=== PATIENT | male | born 1950 | race African-American/Black ===

== ENCOUNTER 2017-08-15 12:34 | Emergency (ER) | payer OTHER ==
--- NOTE | 2017-08-15 13:53 | RAD REPORT ---
EXAM DESCRIPTION: RAD - Foot Left 3 View - 08/15/2017 1:45 pm CLINICAL HISTORY: Left Foot pain FINDINGS: No fracture or dislocation is seen. No bony destructive lesion is seen. Postsurgical changes involve fourth and fifth digits Defect involving the distal aspect of the second metatarsal probably is post surgical. Prior inflamma tion/infection is another consideration
[2017-08-15] MEDS ORDERED: HYDROCODONE/APAP 5/325 MG TAB ONE (14:00)
--- NOTE | 2017-08-15 15:24 | EDPHYS ---
Physician Documentation [facility] Name: Farhan Diaz Age: 67 yrs Sex: Male : 1950 Arrival Date: 08/15/2017 Time: 12:35 Bed 27 Private MD: ED Physician Marcelo Rausch HPI: 08/15 15:18 This 67 yrs old Black Male presents to ER via Ambulatory with complaints of Feet gs Swelling. 15:18 The patient presents with pain, that is acute, swelling. The complaints affect the left gs foot, medial aspect of left toes. Onset: The symptoms/episode began/occurred 2 day(s) ago, and became worse. Associated signs and symptoms: Pertinent negatives: fever. Severity of symptoms: At their worst the symptoms were moderate, in the emergency department the symptoms are unchanged. The patient has not experienced similar symptoms in the past. Historical: - Allergies: 12:48 No Known Allergies; aj - Home Meds: 12:48 amitriptyline 25 mg Oral tab 1 tab once daily [Active]; atorvastatin 40 mg oral tab 1 aj tab once daily [Active]; bupropion HCl 150 mg Oral Tb24 1 tab once daily [Active]; carvedilol 25 mg oral tab 1 tab 2 times per day [Active]; diclofenac sodium 50 mg oral TbEC daily [Active]; gabapentin 300 mg oral cap nightly [Active]; lisinopril 40 mg Oral tab 1 tab once daily [Active]; magnesium oxide 420 mg Oral tab [Active]; metformin 500 mg Oral TG24 2 tabs 2 times per day [Active]; sildenafil oral 100 mg oral as needed [Active]; - PMHx: 12:48 Hyperlipidemia; Hypertension; TBI; Diabetes - NIDDM; aj - PSHx: 12:48 Metal Plate in head; aj - Immunization history:: Adult Immunizations up to date. - Social history:: Smoking status: Patient/guardian denies using tobacco. ROS: 15:18 All other systems are negative. gs Exam: 15:18 Head/Face: Normocephalic, atraumatic. Eyes: Pupils equal round and reactive to light, gs extra-ocular motions intact. Lids and lashes normal. Conjunctiva and sclera are non-icteric and not injected. Cornea within normal limits. Periorbital areas with no swelling, redness, or edema. Cardiovascular: Regular rate and rhythm with a normal S1 and S2. No gallops, murmurs, or rubs. Normal PMI, no JVD. No pulse deficits. Respiratory: Lungs have equal breath sounds bilaterally, clear to auscultation and percussion. No rales, rhonchi or wheezes noted. No increased work of breathing, no retractions or nasal flaring. Abdomen/GI: Soft, non-tender, with normal bowel sounds. No distension or tympany. No guarding or rebound. No evidence of tenderness throughout. Skin: Warm, dry with normal turgor. Normal color with no rashes, no lesions, and no evidence of cellulitis. Neuro: Awake and alert, GCS 15, oriented to person, place, time, and situation. Cranial nerves II-XII grossly intact. Motor strength 5/5 in all extremities. Sensory grossly intact. Cerebellar exam normal. Normal gait. 15:18 Musculoskeletal/extremity: Extremities: noted in the left first toe: erythema, pain, swelling, tenderness, ROM: no acute changes, Circulation is intact in all extremities. Sensation intact. Joints: Vital Signs: 12:48 BP 117 / 81; Pulse 90; Resp 20; Temp 98.6; Pulse Ox 98% on R/A; Weight 113.4 kg; Height aj 6 ft. 4 in. (193.04 cm); Pain 10/10; 13:08 BP 130 / 91; Pulse 84; Resp 18; Pulse Ox 99% on R/A; Pain 10/10; em 14:08 BP 133 / 88; Pulse 84; Resp 18; Pulse Ox 99% on R/A; Pain 8/10; em 15:48 BP 132 / 86; Pulse 79; Resp 14; Pulse Ox 97% on R/A; em 12:48 Body Mass Index 30.43 (113.40 kg, 193.04 cm) MDM: 13:30 Patient medically screened. 15:18 Differential diagnosis: fracture, sprain, gout. Data reviewed: vital signs, nurses gs notes. Response to treatment: the patient's symptoms have mildly improved after treatment, and as a result, I will discharge patient. 08/15 13:31 Order name: Uric Acid; Complete Time: 15:06 08/15 12:52 Order name: XRAY Foot LEFT 3 View; Complete Time: 13:58 aj Administered Medications: 14:06 Drug: [place] 5 mg-325 mg 1 tabs Route: PO; em 15:48 Follow up: Response: No adverse reaction em Disposition: 08/15/17 15:23 Discharged to Home. Impression: Gout. - Condition is Stable. - Discharge Instructions: Gout, [place]. - Prescriptions for Naprosyn 500 mg Oral Tablet - take 1 tablet by ORAL route 2 times per day take with food; 14 tablet. Pepcid 20 mg Oral Tablet - take 1 tablet by ORAL route every 12 hours for 5 days; 10 tablet. Prednisone 20 mg Oral Tablet - take 1 tablet by ORAL route once daily for 5 days; 5 tablet. - Medication Reconciliation Form, Thank You Letter, Antibiotic Education, Prescription Opioid Use form. - Follow up: Private Physician; When: 2 - 3 days; Reason: Re-evaluation by your physician. Signatures: Dispatcher [employer] Lupis Bryson RN RN aj Munoz, Edgar, TEAM ASSISTANT TEAM ASSISTANT Marcelo Schultz MD MD
--- NOTE | 2017-08-15 15:24 | ER ---
Nurse's Notes [facility] Name: Frahan Diaz Age: 67 yrs Sex: Male : 1950 Arrival Date: 08/15/2017 Time: 12:35 Bed 27 Private MD: Diagnosis: Gout Presentation: 08/15 12:43 Presenting complaint: Patient states: Left great toe pain and swelling for 3 days. [facility]. Was told to come to ER for concern of infection or gout. Transition of care: patient was not received from another setting of care. Onset of symptoms was August 12, 2017. Initial Sepsis Screen: Does the patient meet any 2 criteria? No. Patient's initial sepsis screen is negative. Does the patient have a suspected source of infection? No. Patient's initial sepsis screen is negative. Care prior to arrival: None. 12:43 Method Of Arrival: Ambulatory aj 12:43 Acuity: TRACIE 3 aj Triage Assessment: 12:48 General: Appears in no apparent distress. comfortable, Behavior is calm, cooperative, aj appropriate for age. Pain: Complains of pain in left first toe Pain currently is 10 out of 10 on a pain scale. Neuro: Level of Consciousness is awake, alert, obeys commands, Oriented to person, place, time, situation, Appropriate for age. Respiratory: Airway is patent Respiratory effort is even, unlabored, Respiratory pattern is regular, symmetrical. Derm: Skin is intact, is healthy with good turgor, Skin is pink, warm \T\ dry. normal. Historical: - Allergies: 12:48 No Known Allergies; aj - Home Meds: 12:48 amitriptyline 25 mg Oral tab 1 tab once daily [Active]; atorvastatin 40 mg oral tab 1 aj tab once daily [Active]; bupropion HCl 150 mg Oral Tb24 1 tab once daily [Active]; carvedilol 25 mg oral tab 1 tab 2 times per day [Active]; diclofenac sodium 50 mg oral TbEC daily [Active]; gabapentin 300 mg oral cap nightly [Active]; lisinopril 40 mg Oral tab 1 tab once daily [Active]; magnesium oxide 420 mg Oral tab [Active]; metformin 500 mg Oral TG24 2 tabs 2 times per day [Active]; sildenafil oral 100 mg oral as needed [Active]; - PMHx: 12:48 Hyperlipidemia; Hypertension; TBI; Diabetes - NIDDM; aj - PSHx: 12:48 Metal Plate in head; aj - Immunization history:: Adult Immunizations up to date. - Social history:: Smoking status: Patient/guardian denies using tobacco. Screenin:38 Abuse screen: Denies threats or abuse. Nutritional screening: No deficits noted. em Tuberculosis screening: No symptoms or risk factors identified. Fall Risk None identified. Assessment: 13:15 General: Appears in no apparent distress. uncomfortable, Behavior is calm, cooperative. em Pain: Complains of pain in left foot Pain currently is 10 out of 10 on a pain scale. Pain began 2-3 days ago. Neuro: Level of Consciousness is awake, alert, obeys commands, Oriented to person, place, time, situation. Cardiovascular: Heart tones S1 S2 present Capillary refill < 3 seconds Patient's skin is warm and dry. Respiratory: Airway is patent Respiratory effort is even, unlabored, Respiratory pattern is regular, symmetrical. GI: Abdomen is round. : No signs and/or symptoms were reported regarding the genitourinary system. EENT: No signs and/or symptoms were reported regarding the EENT system. Derm: Skin is intact, Skin is pink, warm \T\ dry. Musculoskeletal: Range of motion: intact in all extremities. 13:30 General: The previous assessment is accurate. Call light remains within reach. at ss bedside. . 14:05 Reassessment: Patient appears in no apparent distress at this time. Patient and/or em family updated on plan of care and expected duration. Pain level reassessed. Patient is alert, oriented x 3, equal unlabored respirations, skin warm/dry/pink. awaiting blood diagnostics, pt c/o pain, Dr. Rausch notified, new medication orders received. 15:09 Reassessment: Patient appears in no apparent distress at this time. Patient and/or em family updated on plan of care and expected duration. Pain level reassessed. Patient is alert, oriented x 3, equal unlabored respirations, skin warm/dry/pink. 15:48 Reassessment: Patient appears in no apparent distress at this time. Patient and/or em family updated on plan of care and expected duration. Pain level reassessed. Patient is alert, oriented x 3, equal unlabored respirations, skin warm/dry/pink. Patient states feeling better. Vital Signs: 12:48 BP 117 / 81; Pulse 90; Resp 20; Temp 98.6; Pulse Ox 98% on R/A; Weight 113.4 kg; Height aj 6 ft. 4 in. (193.04 cm); Pain 10/10; 13:08 BP 130 / 91; Pulse 84; Resp 18; Pulse Ox 99% on R/A; Pain 10/10; em 14:08 BP 133 / 88; Pulse 84; Resp 18; Pulse Ox 99% on R/A; Pain 8/10; em 15:48 BP 132 / 86; Pulse 79; Resp 14; Pulse Ox 97% on R/A; em 12:48 Body Mass Index 30.43 (113.40 kg, 193.04 cm) aj ED Course: 12:35 Patient arrived in ED. as 12:44 Triage completed. aj 12:48 Arm band placed on left wrist. Patient placed in waiting room, Patient notified of wait aj time. 13:11 Gatito Hsu LVN is Primary Nurse. em 13:13 Marcelo Rausch MD is Attending Physician. gs 13:38 Patient has correct armband on for positive identification. Bed in low position. Call em light in reach. Side rails up X 1. Adult w/ patient. 13:43 XRAY Foot LEFT 3 View In Process Unspecified. EDMS 14:00 No provider procedures requiring assistance completed. Initial lab(s) drawn, by me, em sent to lab. Inserted saline lock: 22 gauge in left antecubital area, using aseptic technique. Blood collected. 16:14 IV discontinued, intact, bleeding controlled, No redness/swelling at site. Pressure em dressing applied. Administered Medications: 14:06 Drug: [place] 5 mg-325 mg 1 tabs Route: PO; em 15:48 Follow up: Response: No adverse reaction em Outcome: 15:23 Discharge ordered by . gs 16:14 Discharged to home via wheelchair. em 16:14 Condition: good 16:14 Discharge instructions given to patient, Instructed on discharge instructions, follow up and referral plans. medication usage, Demonstrated understanding of instructions, follow-up care, medications, Prescriptions given X 3. 16:14 Patient left the ED. em Signatures: Dispatcher [employer] Lupis Bryson RN RN aj Munoz, Edgar, LVN LVN em Liset Taylor Shelby, ANDRE RN ss Marcelo Rausch MD MD gs Corrections: (The following items were deleted from the chart) 15:09 13:08 BP 130 / 91; Pulse 18bpm; Resp 18bpm; Pulse Ox 99% RA; Pain 01/29; em em
[2017-08-15 16:25] VITALS: TEMP 98.6
[2017-08-15 16:28] VITALS: BP 132/86; O2SAT 97
== END 2017-08-15 16:14 | disposition home or self-care (01) ==
LOC: ER 12:34
DX: M10.9 Gout, unspecified (principal); I10 Essential (primary) hypertension; E78.5 Hyperlipidemia, unspecified; E11.9 Type 2 diabetes mellitus without complications
CPT/HCPCS: 36415; 84550; 99284

== ENCOUNTER 2020-01-23 10:22 | Emergency (ER) | payer OTHER ==
[2020-01-23] MEDS ORDERED: HYDROCODONE/APAP 10/325 TAB ONE (12:43)
--- NOTE | 2020-01-23 13:01 | RAD REPORT ---
EXAM DESCRIPTION: CTSpine Lumbar Wo Con01/23/2020 12:44 pm CLINICAL HISTORY: Back injury with back pain and radiculopathy status post fall COMPARISON: None TECHNIQUE: Computed axial tomography lumbar spine was obtained with coronal and sagittal reconstruct ion. All CT scans are performed using dose optimization technique as appropriate and may include automated exposure control or mA/KV adjustment according to patient size. FINDINGS: No fracture seen [id number] chronic posterior subluxation L5 on S1 with disc space narrowing, vacuum phenomena, subchondral sclerosis, disc bulge and epidural lipomatosis. All of this results in central spinal randall nosis Spondylosis involves L2-3, L3-4 and L4-5 resulting mild central spinal stenosis IMPRESSION: Negative for a lumbar fracture. Marked central spinal stenosis L5-S1 If patient continues have symptoms to suggest spinal canal pathology MRI would be recommended
--- NOTE | 2020-01-23 13:05 | RAD REPORT ---
EXAM DESCRIPTION: RAD - Pelvis - 01/23/2020 12:30 pm CLINICAL HISTORY: Pelvic pain status post injury FINDINGS: No fracture or dislocation is seen.
--- NOTE | 2020-01-23 13:07 | RAD REPORT ---
EXAM DESCRIPTION: RAD - Hip Left 2 View - 01/23/2020 12:30 pm CLINICAL HISTORY: Left hip pain status post injury FINDINGS: No fracture or dislocation is seen.
--- NOTE | 2020-01-23 13:10 | RAD REPORT ---
EXAM DESCRIPTION: RAD - Knee Left 3 View - 01/23/2020 12:32 pm CLINICAL HISTORY: Left knee pain status post injury FINDINGS: Cortical irregularity involves the lateral aspect of the lateral tibial plateau. This is e quivocal for a nondisplaced fracture. If clinically indicated further evaluation with CT could be obt ained No dislocation Small to moderate joint effusion is suspected
[2020-01-23] MEDS ORDERED: MORPHINE 4 MG/ML SYR ONE ×2 (13:48→17:22)
[2020-01-23] MEDS ORDERED: ONDANSETRON 4 MG/2 ML VIAL ONE (13:49)
--- NOTE | 2020-01-23 14:07 | RAD REPORT ---
EXAM DESCRIPTION: CT - Knee Left Wo [place] - 01/23/2020 1:46 pm CLINICAL HISTORY: Left knee pain and swelling status post fall COMPARISON: X-ray TECHNIQUE: Computed axial tomography left obtained All CT scans are performed using dose optimization technique as appropriate and may include automated exposure control or mA/KV adjustment according to patient size. FINDINGS: 3 millimeter bony density lies adjacent to the tibial spine. An additional bony/ calcific density within the intercondylar notch appears chronic. No definite acute fracture or dislocation seen. Bones appear somewhat osteoporotic Small to moderate joint effusion. IMPRESSION: 3 millimeter bony density adjacent to the tibial spine has a more of the appearance of b eing chronic than an acute avulsion fracture. Small to moderate joint effusion. In the setting of trauma if the patient continues to have symptoms to suggest an occult fracture, ligamentous or meniscal injury MRI would be recommended
--- NOTE | 2020-01-23 14:17 | ER ---
Nurse's Notes [facility] Name: Farhan Diaz Age: 69 yrs Sex: Male : 1950 Arrival Date: 01/23/2020 Time: 10:23 Bed 14 Private MD: Diagnosis: Spinal stenosis, lumbar region;Loss of bladder control, Left leg weakness, Left knee pain Presentation: 01/22 10:52 Chief complaint: Patient states: I tripped and fell 4 days ago going to the bathroom, ca1 since then I have pain on my L knee and L hip, L lower back. I landed on the floor but I caught myself a little. Reports swelling on L knee, trouble walking since the fall. Coronavirus screen: Client denies travel out of the [place] in the last 14 days. At this time, the client does not indicate any symptoms associated with coronavirus-19. Ebola Screen: Patient negative for fever greater than or equal to 101.5 degrees Fahrenheit, and additional compatible Ebola Virus Disease symptoms Patient denies exposure to infectious person. Patient denies travel to an Ebola-affected area in the 21 days before illness onset. No symptoms or risks identified at this time. Initial Sepsis Screen: Does the patient meet any 2 criteria? No. Patient's initial sepsis screen is negative. Does the patient have a suspected source of infection? No. Patient's initial sepsis screen is negative. Risk Assessment: Do you want to hurt yourself or someone else? Patient reports no desire to harm self or others. Onset of symptoms was January 23, 2020. 10:52 Method Of Arrival: Wheelchair ca1 10:52 Acuity: TRACIE 4 ca1 Historical: - Allergies: 11:08 No Known Allergies; ca1 - PMHx: 11:08 Diabetes - NIDDM; Hyperlipidemia; Hypertension; TBI; ca1 - PSHx: 11:08 Metal Plate in head; Knee surgery; ca1 - Immunization history:: Adult Immunizations up to date. - Social history:: Smoking status: Patient denies any tobacco usage or history of. Screenin:09 Abuse screen: Denies threats or abuse. Denies injuries from another. Nutritional ca1 screening: No deficits noted. Tuberculosis screening: No symptoms or risk factors identified. Fall Risk Fall in past 12 months (25 points). Total Galaviz Fall Scale indicates No Risk (0-24 pts). Assessment: 11:09 General: Appears in no apparent distress. comfortable, Behavior is calm, cooperative, ca1 appropriate for age. Pain: Complains of pain in L hip, L low back, L knee Pain currently is 9 out of 10 on a pain scale. Pain began 4 days ago Aggravated by repositioning, weight bearing. Neuro: Level of Consciousness is awake, alert, obeys commands, Oriented to person, place, time, situation. Derm: Skin is intact, is healthy with good turgor, Skin is pink, warm \T\ dry. Musculoskeletal: Circulation, motion, and sensation intact. Capillary refill < 3 seconds, Range of motion: limited in left knee. 13:01 Reassessment: Patient appears in no apparent distress at this time. No changes from jd3 previously documented assessment. Patient and/or family updated on plan of care and expected duration. Pain level reassessed. Patient is alert, oriented x 3, equal unlabored respirations, skin warm/dry/pink. 14:20 Reassessment: Patient appears in no apparent distress at this time. Patient and/or jd3 family updated on plan of care and expected duration. Pain level reassessed. Patient is alert, oriented x 3, equal unlabored respirations, skin warm/dry/pink. 15:30 Reassessment: Patient appears in no apparent distress at this time. Patient and/or jd3 family updated on plan of care and expected duration. Pain level reassessed. Patient is alert, oriented x 3, equal unlabored respirations, skin warm/dry/pink. pt wishing to leave AMA, provider notified. provider at bedside discussing plan of care. 15:40 Reassessment: Patient and/or family updated on plan of care and expected duration. Pain jd3 level reassessed. Patient is alert, oriented x 3, equal unlabored respirations, skin warm/dry/pink. pt agreeing to stay after talking with the doctor. pt given a recliner chair to wait for transfer. 16:28 Reassessment: Patient and/or family updated on plan of care and expected duration. Pain jd3 level reassessed. Patient is alert, oriented x 3, equal unlabored respirations, skin warm/dry/pink. called report to [place] for transfer. report given to Austen POWELL. 17:48 Reassessment: Patient appears in no apparent distress at this time. Patient and/or jd3 family updated on plan of care and expected duration. Pain level reassessed. Patient is alert, oriented x 3, equal unlabored respirations, skin warm/dry/pink. report given to [facility] ambulance. Vital Signs: 10:52 BP 120 / 82; Pulse 76; Resp 17 S; Temp 97.5(TE); Pulse Ox 96% on R/A; Weight 113.4 kg ca1 (R); Height 6 ft. 4 in. (193.04 cm) (R); Pain 9/10; 11:46 BP 123 / 88; Pulse 75; Resp 16; Temp 98.8(O); Pulse Ox 98% on R/A; mh5 12:54 BP 145 / 87; Pulse 74; Resp 16; Temp 98.1(O); Pulse Ox 100% on R/A; mh5 14:00 BP 108 / 81; Pulse 80; Resp 16; Temp 97.5(TE); Pulse Ox 100% on R/A; mh5 15:23 BP 137 / 90; Pulse 77; Resp 17; Pulse Ox 98% on R/A; mh5 16:28 BP 142 / 95; Pulse 70; Resp 17 S; Pulse Ox 98% on R/A; jd3 10:52 Body Mass Index 30.43 (113.40 kg, 193.04 cm) ca1 ED Course: 10:23 Patient arrived in ED. as 10:52 Arm band placed on right wrist. ca1 11:04 Anusha Escobedo, RN is Primary Nurse. ca1 11:07 Triage completed. ca1 11:09 Patient has correct armband on for positive identification. Placed in gown. Bed in low ca1 position. Call light in reach. Side rails up X2. Pulse ox on. NIBP on. Warm blanket given. 11:12 Tony Steven MD is Attending Physician. kdr 12:29 Knee Left 3 View XRAY In Process Unspecified. EDMS 12:29 Pelvis XRAY In Process Unspecified. EDMS 12:29 Hip Left 2 View XRAY In Process Unspecified. EDMS 12:44 CT Lumbar Spine Wo Con In Process Unspecified. EDMS 13:37 Initial lab(s) drawn, by me, held in ED. Inserted saline lock: 20 gauge in right hand, ca1 using aseptic technique. Blood collected. 13:46 Knee Left Wo Con In Process Unspecified. EDMS 14:08 initiated a transfer with Ana Wilson from the [facility] Transfer Center. eb 14:15 called and cancelled transfer with Chrissie from the [facility] Transfer Center/ pt eb requests to be transferred to the [facility]. 14:17 called and initiated a transfer with Staciekt from the [facility] transfer center/ faxed eb patients records to the [facility] as requested. 16:[address] Manning the hospitalist semiconductor packages sealer for the [facility] with Dr. Steven for patient eb transfer consultation. 16:13 administrative approval given by Yamileth Dodd/ patient has been accepted to the [facility] ER/ Dr. Manning, Vu has accepted the patient in transfer/ report to be called to the er at [phone]. 17:49 No provider procedures requiring assistance completed. Patient transferred, IV remains jd3 in place. Administered Medications: 12:39 Not Given (Duplicate Order): [place] 10 mg-325 mg 1 tabs PO once; RASS on ADMIN: Combtv4, jd3 Very Agttd3, Agttd2, Rstlss1, AlertClm0, Drwsy-1, Lt Sdtn-2, Mod Sdtn-3, Dp Sdtn-4, UnArsble-5 12:56 Drug: [place] 10 mg-325 mg 1 tabs Route: PO; jd3 13:50 Follow up: Response: No adverse reaction; RASS: Alert and Calm (0) jd3 13:42 Drug: Zofran (Ondansetron) 4 mg Route: IVP; Site: right hand; jd3 14:40 Follow up: Response: No adverse reaction jd3 13:42 Drug: morphine 4 mg Route: IVP; Site: right hand; jd3 14:40 Follow up: Response: No adverse reaction; RASS: Alert and Calm (0) jd3 17:12 Drug: morphine 4 mg Route: IVP; Site: right hand; jd3 17:51 Follow up: Response: No adverse reaction; RASS: Alert and Calm (0) jd3 Outcome: 14:16 ER care complete, transfer ordered by . kdr 17:49 Transferred by ground EMS to [facility] Transfer form completed. jd3 X-rays sent w/ patient. 17:49 Condition: stable 17:49 Instructed on the need for transfer, Demonstrated understanding of instructions. 17:51 Patient left the ED. jd3 Signatures: Dispatcher [employer] EDMS Tony Steven MD MD kdr Martinez, Amelia as Martinez, Maria [facility] En Galeana RN RN jd3 Ana Collazo Cheryl, RN RN ca1 Corrections: (The following items were deleted from the chart) 11:08 10:52 BP 108 / 92; Pulse 76bpm; Resp 17bpm; Spontaneous; Pulse Ox 96% RA; Temp 97.5F ca1 Temporal; 113.4 kg Reported; Height 6 ft. 4 in. Reported; BMI: 30.4; Pain 9/10; ca1
--- NOTE | 2020-01-23 14:17 | EDPHYS ---
Physician Documentation [facility] Name: Farhan Diaz Age: 69 yrs Sex: Male : 1950 Arrival Date: 01/23/2020 Time: 10:23 Bed 14 Private MD: ED Physician Tony Steven HPI: 01/22 12:01 This 69 yrs old Black Male presents to ER via Wheelchair with complaints of Knee Pain, kdr Hip Pain, Trouble Walking. 12:01 The patient or guardian reports decreased range of motion, an injury, pain, swelling, kdr weakness. that occurred at home, sustained from a fall, from a seated position, There is no obvious deformity, The patient is able to ambulate with assistance. The patient is able to bear partial body weight. There is no radiation of the patient's discomfort. The complaints affect the left inguinal area, left iliac crest and left hip. The complaints affect the left lateral ankle, left medial ankle and anterior aspect of left ankle. Onset: The symptoms/episode began/occurred suddenly, 4 day(s) ago. Modifying factors: The symptoms are alleviated by nothing, the symptoms are aggravated by any movement, extension, flexion, internal rotation, weight bearing. Associated signs and symptoms: Pertinent positives: Left hip pain. Severity of symptoms: At their worst the symptoms were moderate. The patient has not experienced similar symptoms in the past. The patient has experienced similar episodes in the past, several times. The patient has not recently seen a physician. Historical: - Allergies: 11:08 No Known Allergies; ca1 - PMHx: 11:08 Diabetes - NIDDM; Hyperlipidemia; Hypertension; TBI; ca1 - PSHx: 11:08 Metal Plate in head; Knee surgery; ca1 - Immunization history:: Adult Immunizations up to date. - Social history:: Smoking status: Patient denies any tobacco usage or history of. ROS: 12:01 Constitutional: Negative for fever, chills, and weight loss, Eyes: Negative for injury, kdr pain, redness, and discharge, ENT: Negative for injury, pain, and discharge, Neck: Negative for injury, pain, and swelling, Cardiovascular: Negative for chest pain, palpitations, and edema, Respiratory: Negative for shortness of breath, cough, wheezing, and pleuritic chest pain, Abdomen/GI: Negative for abdominal pain, nausea, vomiting, diarrhea, and constipation, Back: Negative for injury and pain, : Negative for injury, bleeding, discharge, and swelling, Skin: Negative for injury, rash, and discoloration, Neuro: Negative for headache, weakness, numbness, tingling, and seizure activity. Psych: Negative for depression, anxiety, suicide ideation, homicidal ideation, and hallucinations, Allergy/Immunology: Negative for hives, rash, and allergies, Endocrine: Negative for neck swelling, polydipsia, polyuria, polyphagia, and marked weight changes, Hematologic/Lymphatic: Negative for swollen nodes, abnormal bleeding, and unusual bruising. Exam: 12:01 Constitutional: This is a well developed, well nourished patient who is awake, alert, kdr and in no acute distress. Head/Face: Normocephalic, atraumatic. Eyes: Pupils equal round and reactive to light, extra-ocular motions intact. Lids and lashes normal. Conjunctiva and sclera are non-icteric and not injected. Cornea within normal limits. Periorbital areas with no swelling, redness, or edema. Neck: Trachea midline, no thyromegaly or masses palpated, and no cervical lymphadenopathy. Supple, full range of motion without nuchal rigidity, or vertebral point tenderness. No Meningismus. Chest/axilla: Normal chest wall appearance and motion. Nontender with no deformity. No lesions are appreciated. Cardiovascular: Regular rate and rhythm with a normal S1 and S2. No gallops, murmurs, or rubs. Normal PMI, no JVD. No pulse deficits. Respiratory: Lungs have equal breath sounds bilaterally, clear to auscultation and percussion. No rales, rhonchi or wheezes noted. No increased work of breathing, no retractions or nasal flaring. Abdomen/GI: Soft, non-tender, with normal bowel sounds. No distension or tympany. No guarding or rebound. No evidence of tenderness throughout. Skin: Warm, dry with normal turgor. Normal color with no rashes, no lesions, and no evidence of cellulitis. Neuro: Awake and alert, GCS 15, oriented to person, place, time, and situation. Cranial nerves II-XII grossly intact. Motor strength 5/5 in all extremities. Sensory grossly intact. Cerebellar exam normal. Normal gait. Psych: Awake, alert, with orientation to person, place and time. Behavior, mood, and affect are within normal limits. 12:01 Back: pain, that is mild, normal spinal alignment noted. 12:01 Musculoskeletal/extremity: Extremities: grossly normal except: noted in the lateral aspect of left knee, posterior aspect of left knee, medial aspect of left knee and left knee: decreased ROM, pain. Vital Signs: 10:52 BP 120 / 82; Pulse 76; Resp 17 S; Temp 97.5(TE); Pulse Ox 96% on R/A; Weight 113.4 kg ca1 (R); Height 6 ft. 4 in. (193.04 cm) (R); Pain 9/10; 11:46 BP 123 / 88; Pulse 75; Resp 16; Temp 98.8(O); Pulse Ox 98% on R/A; mh5 12:54 BP 145 / 87; Pulse 74; Resp 16; Temp 98.1(O); Pulse Ox 100% on R/A; mh5 14:00 BP 108 / 81; Pulse 80; Resp 16; Temp 97.5(TE); Pulse Ox 100% on R/A; mh5 15:23 BP 137 / 90; Pulse 77; Resp 17; Pulse Ox 98% on R/A; mh5 16:28 BP 142 / 95; Pulse 70; Resp 17 S; Pulse Ox 98% on R/A; jd3 10:52 Body Mass Index 30.43 (113.40 kg, 193.04 cm) ca1 MDM: 12:29 Data reviewed: vital signs, nurses notes, radiologic studies. Counseling: I had a kdr detailed discussion with the patient and/or guardian regarding: the historical points, exam findings, and any diagnostic results supporting the discharge/admit diagnosis, radiology results, the need for outpatient follow up. 14:16 Patient medically screened. kdr 01/22 11:34 Order name: Knee Left 3 View XRAY; Complete Time: 13:17 ca1 01/22 11:34 Order name: Pelvis XRAY; Complete Time: 13:17 ca1 01/22 11:34 Order name: Hip Left 2 View XRAY; Complete Time: 13:17 ca1 01/22 12:30 Order name: CT Lumbar Spine Wo Con; Complete Time: 13:17 kdr 01/22 13:22 Order name: Knee Left Wo Con; Complete Time: 14:17 EDMS 01/22 13:32 Order name: IV; Complete Time: 13:37 jd3 Administered Medications: 12:39 Not Given (Duplicate Order): [place] 10 mg-325 mg 1 tabs PO once; RASS on ADMIN: Combtv4, jd3 Very Agttd3, Agttd2, Rstlss1, AlertClm0, Drwsy-1, Lt Sdtn-2, Mod Sdtn-3, Dp Sdtn-4, UnArsble-5 12:56 Drug: [place] 10 mg-325 mg 1 tabs Route: PO; jd3 13:50 Follow up: Response: No adverse reaction; RASS: Alert and Calm (0) jd3 13:42 Drug: Zofran (Ondansetron) 4 mg Route: IVP; Site: right hand; jd3 14:40 Follow up: Response: No adverse reaction jd3 13:42 Drug: morphine 4 mg Route: IVP; Site: right hand; jd3 14:40 Follow up: Response: No adverse reaction; RASS: Alert and Calm (0) jd3 17:12 Drug: morphine 4 mg Route: IVP; Site: right hand; jd3 17:51 Follow up: Response: No adverse reaction; RASS: Alert and Calm (0) jd3 Disposition: 01/23/20 14:16 Transfer ordered to [facility]. Diagnosis are Spinal stenosis, lumbar region, Loss of bladder control, Left leg weakness, Left knee pain. - Reason for transfer: Higher level of care. - Accepting physician is [place] . - Condition is Fair. - Problem is an ongoing problem. - Symptoms are unchanged. Signatures: Dispatcher [employer] [facility] Tony Steven MD MD kdr En Galeana RN RN jd3 Anusha Escobedo RN RN ca1 Corrections: (The following items were deleted from the chart) 17:51 14:16 01/23/2020 14:[facility] Diagnosis jd3 is Spinal stenosis, lumbar region; Loss of bladder control, Left leg weakness, Left knee pain. Reason for transfer: Higher level of care. Accepting physician is [place] . Condition is Fair. Problem is an ongoing problem. Symptoms are unchanged. kdr
[2020-01-23 18:00] VITALS: TEMP 97.5
[2020-01-23 18:01] VITALS: O2SAT 98
[2020-01-23 18:03] VITALS: BP 142/95
== END 2020-01-23 17:51 ==
LOC: ER 10:22
DX: M48.061 Spinal stenosis, lumbar region without neurogenic claudication (principal); R39.81 Functional urinary incontinence; R53.1 Weakness; I10 Essential (primary) hypertension; W17.89XA Other fall from one level to another, initial encounter; Y93.9 Activity, unspecified; Y92.009 Unspecified place in unspecified non-institutional (private) residence as the place of occurrence of the external cause; Z87.820 Personal history of traumatic brain injury
CPT/HCPCS: 72131; 73700; 72170; 73502; 73562; 96375; 96374; 99285; J2405

== ENCOUNTER 2020-05-05 16:45 | Emergency (ER) | payer OTHER ==
--- NOTE | 2020-05-05 19:52 | RAD REPORT ---
EXAM DESCRIPTION: CT - Head Brain Wo Cont - 05/05/2020 7:40 pm CLINICAL HISTORY: Headache COMPARISON: 2009 TECHNIQUE: Computed axial tomography of the head was obtained. IV contrast was not requested. All CT scans are performed using dose optimization technique as appropriate and may include automated exposure control or mA/KV adjustment according to patient size. FINDINGS: An intracranial bleed is not seen . The ventricles are normal in caliber. No extra-axial fluid collection is noted. Left craniotomy. 2.7 centimeter area of gliosis left frontal lobe unchanged. Fluid within the sinuses/ mastoids is not seen. IMPRESSION: No acute intracranial abnormality is seen. If patient's symptoms persist MRI of the bra in would be recommended.
[2020-05-05 20:20] LABS: Protime INR 0.91
[2020-05-05] MEDS ORDERED: METOCLOPRAMIDE 10 MG/2mL INJ ONE (20:20)
[2020-05-05] MEDS ORDERED: DIPHENHYDRAMINE 50 MG/ML VIAL ONE (20:20)
[2020-05-05] MEDS ORDERED: NA CHLORIDE 0.9% 250 ML ONE (20:20)
[2020-05-05 20:23] LABS: Absolute Lymphocytes (CBC) 1.9 K/uL (0.7-4.9); Basophils % 1.2 % (0-1.3); Hematocrit 49.4 % (39.6-49.0); Lymphocytes % 14.8 % (15.3-44.8); MPV 8.9 fL (7.6-11.3); RBC Red Blood Cell Count 6.05 M/uL (4.33-5.43)
[2020-05-05 20:39] LABS: ALT/SGPT 41 U/L (12-78); AST/SGOT 25 U/L (15-37); Albumin 4.1 g/dL (3.4-5.0); Alkaline Phosphatase 107 U/L (45-117); BUN Blood Urea Nitrogen 15 mg/dL (7-18); Bicarbonate 31 mmol/L (21-32); Bilirubin Direct < 0.1 mg/dL (0-0.2); Bilirubin Total 0.3 mg/dL (0.2-1.0); Glucose Level 98 mg/dL (74-106); Magnesium 2.4 mg/dL (1.8-2.4); NT PRO-BNP 43 pg/mL (<125); Potassium 4.3 mmol/L (3.5-5.1); Protein, Total 8.5 g/dL (6.4-8.2); Sodium Level 142 mmol/L (136-145); Troponin (Emerg Dept Use Only) < 0.02 ng/mL (0.0-0.045)
--- NOTE | 2020-05-05 20:55 | ER ---
Nurse's Notes [facility] Name: Farhan Diaz Age: 70 yrs Sex: Male : 1950 Arrival Date: 05/05/2020 Time: 16:45 Bed 24 Private MD: Diagnosis: Headache;Elevated Blood Pressure Presentation: 05/05 17:19 Chief complaint: Patient states: [facility] highest ca1 163/111 and they told me to come to the nearest ER. I took Lisinopril and last BP [employer] 134/100. 2 - 3 days, been dizzy, have headaches and am breaking out on sweats. Spouse and/or significant other states: Yesterday, he was disoriented too and like he couldn't find where he is at. Coronavirus screen: Client denies travel out of the [place] in the last 14 days. headache, Client presents with at least one sign or symptom that may indicate coronavirus-19. Standard/surgical mask placed on the client. Provider contacted for isolation considerations. Ebola Screen: Patient negative for fever greater than or equal to 101.5 degrees Fahrenheit, and additional compatible Ebola Virus Disease symptoms Patient denies exposure to infectious person. Patient denies travel to an Ebola-affected area in the 21 days before illness onset. No symptoms or risks identified at this time. Initial Sepsis Screen: Does the patient meet any 2 criteria? No. Patient's initial sepsis screen is negative. Does the patient have a suspected source of infection? No. Patient's initial sepsis screen is negative. Risk Assessment: Do you want to hurt yourself or someone else? Patient reports no desire to harm self or others. Onset of symptoms was May 05, 2020. 17:19 Method Of Arrival: Wheelchair ca1 17:19 Acuity: TRACIE 3 ca1 Historical: - Allergies: 17:29 No Known Allergies; ca1 - Home Meds: 17:29 carvedilol 25 mg Oral tab 1 tab 2 times per day [Active]; atorvastatin 40 mg Oral tab 1 ca1 tab once daily [Active]; donepezil 10 mg oral tab 1 tab once daily [Active]; finasteride 5 mg oral tab 1 tab once daily [Active]; fluoxetine 20 mg Oral cap 1 cap once daily [Active]; gabapentin 300 mg Oral cap nightly [Active]; lisinopril 40 mg Oral tab 1 tab once daily [Active]; metformin 500 mg Oral TG24 1 tabs 2 times per day [Active]; memantine 10 mg oral tab 1 tab daily [Active]; mirtazapine 30 mg Oral TbDL 1 tab once daily [Active]; sildenafil oral oral [Active]; tamsulosin 0.4 mg oral cp24 1 cap once daily [Active]; - PMHx: 17:29 Diabetes - NIDDM; Hyperlipidemia; Hypertension; TBI; ca1 - PSHx: 17:29 Metal Plate in head; Knee surgery; ca1 - Immunization history:: Pneumococcal vaccine is up to date, Flu vaccine is up to date. - Social history:: Smoking status: Patient/guardian denies using tobacco, the patient reports quitting approximately 40 years ago. Screenin:29 Abuse screen: Denies threats or abuse. Denies injuries from another. Nutritional zb screening: No deficits noted. Tuberculosis screening: No symptoms or risk factors identified. Fall Risk None identified. Assessment: 20:00 General: Appears in no apparent distress. comfortable, Behavior is calm, cooperative, zb appropriate for age. Pain: Complains of pain in left zoroastrian and left temporal area Pain does not radiate. Pain currently is 8 out of 10 on a pain scale. Quality of pain is described as aching, Pain began today. Neuro: Level of Consciousness is awake, alert, obeys commands, Oriented to person, place, time. Cardiovascular: Denies chest pain, diaphoresis, fatigue, lightheadedness, shortness of breath, Heart tones S1 S2 present Capillary refill < 3 seconds in bilateral fingers Patient's skin is warm and dry. Respiratory: Airway is patent Respiratory effort is even, unlabored, Respiratory pattern is regular, symmetrical. GI: Abdomen is round non-distended, Bowel sounds present X 4 quads. : No signs and/or symptoms were reported regarding the genitourinary system. EENT: No signs and/or symptoms were reported regarding the EENT system. Derm: No signs and/or symptoms reported regarding the dermatologic system. Skin is intact, is healthy with good turgor, Skin is dry, Skin is normal, Skin temperature is warm. Musculoskeletal: Circulation, motion, and sensation intact. Capillary refill < 3 seconds, in bilateral fingers. Range of motion: intact in all extremities. 20:17 Reassessment: spoke to patient , updated on plan of care. zb 21:25 Reassessment: Patient appears in no apparent distress at this time. Patient and/or zb family updated on plan of care and expected duration. Pain level reassessed. Patient is alert/active/playful, equal unlabored respirations, skin warm/dry/pink. pt states he ready to go home. d/c information given. pt states is headache has subsided. 21:33 Reassessment: d/c pending provider seeing patient. zb Vital Signs: 17:19 BP 136 / 98; Pulse 81; Resp 16 S; Temp 98.4(O); Pulse Ox 98% on R/A; Weight 115.67 kg ca1 (R); Height 6 ft. 4 in. (193.04 cm) (R); Pain 7/10; 21:00 BP 128 / 80; Pulse 79; Resp 16; Pulse Ox 98% on R/A; zb 21:28 BP 141 / 58; Pulse 76; Resp 16; Pulse Ox 97% on R/A; zb 17:19 Body Mass Index 31.04 (115.67 kg, 193.04 cm) ca1 ED Course: 16:45 Patient arrived in ED. ag5 17:25 Triage completed. ca1 17:29 Arm band placed on right wrist. ca1 19:16 Caleb Branch PA is PHCP. jmm 19:16 Tony Steven MD is Attending Physician. jmm 19:40 CT Head Brain wo Cont In Process Unspecified. EDMS 19:45 Luiza Dennison RN is Primary Nurse. zb 20:00 Inserted saline lock: 20 gauge in right antecubital area, using aseptic technique. zb 21:30 Patient has correct armband on for positive identification. Pulse ox on. NIBP on. Door zb closed. Noise minimized. Warm blanket given. 21:33 No provider procedures requiring assistance completed. IV discontinued, intact, zb bleeding controlled, No redness/swelling at site. Pressure dressing applied. Administered Medications: 20:11 Drug: Reglan 10 mg Route: IVP; Site: right antecubital; zb 21:26 Follow up: Response: No adverse reaction; Pain is decreased zb 20:11 Drug: diphenhydrAMINE 12.5 mg Route: IVP; Site: right antecubital; zb 21:26 Follow up: Response: No adverse reaction zb 20:12 Drug: NS 0.9% 250 ml Route: IV; Rate: calculated rate; Site: right antecubital; zb 21:26 Follow up: Response: No adverse reaction; IV Status: Completed infusion; IV Intake: zb 250ml Intake: 21:26 IV: 250ml; Total: 250ml. denis Outcome: 20:55 Discharge ordered by . daina 21:42 Patient left the ED. denis Signatures: Dispatcher [employer] EDMS Caleb Branch PA PA jmm Acob, Cheryl, RN RN Smith Mcclelland [place], RN RN zb
--- NOTE | 2020-05-05 20:55 | EDPHYS ---
Physician Documentation [facility] Name: Farhan Diaz Age: 70 yrs Sex: Male : 1950 Arrival Date: 05/05/2020 Time: 16:45 Bed 24 Private MD: ED Physician Tony Steven HPI: 05/05 19:29 This 70 yrs old Black Male presents to ER via Wheelchair with complaints of High Blood jmm Pressure. 19:29 The patient has elevated blood pressure and discovered this at a physician's office. jmm Onset: The symptoms/episode began/occurred gradually. Modifying factors:. Associated signs and symptoms: Pertinent positives: dizziness, headache. This is a 70 year old male with a history of DM, HLP, HTN, TBI that presents to the ED with complaints of elevated blood pressure beginning yesterday while at the [facility]. Patient also complains of headache beginning yesterday which was gradual. Patient denies chest pain or shortness of breath. . Historical: - Allergies: 17:29 No Known Allergies; ca1 - Home Meds: 17:29 carvedilol 25 mg Oral tab 1 tab 2 times per day [Active]; atorvastatin 40 mg Oral tab 1 ca1 tab once daily [Active]; donepezil 10 mg oral tab 1 tab once daily [Active]; finasteride 5 mg oral tab 1 tab once daily [Active]; fluoxetine 20 mg Oral cap 1 cap once daily [Active]; gabapentin 300 mg Oral cap nightly [Active]; lisinopril 40 mg Oral tab 1 tab once daily [Active]; metformin 500 mg Oral TG24 1 tabs 2 times per day [Active]; memantine 10 mg oral tab 1 tab daily [Active]; mirtazapine 30 mg Oral TbDL 1 tab once daily [Active]; sildenafil oral oral [Active]; tamsulosin 0.4 mg oral cp24 1 cap once daily [Active]; - PMHx: 17:29 Diabetes - NIDDM; Hyperlipidemia; Hypertension; TBI; ca1 - PSHx: 17:29 Metal Plate in head; Knee surgery; ca1 - Immunization history:: Pneumococcal vaccine is up to date, Flu vaccine is up to date. - Social history:: Smoking status: Patient/guardian denies using tobacco, the patient reports quitting approximately 40 years ago. ROS: 19:29 Constitutional: Negative for fever, chills, and weight loss, Cardiovascular: Negative [facility] for chest pain, palpitations, and edema, Respiratory: Negative for shortness of breath, cough, wheezing, and pleuritic chest pain, Abdomen/GI: Negative for abdominal pain, nausea, vomiting, diarrhea, and constipation. 19:29 Neuro: Positive for headache. 19:29 All other systems are negative. Exam: 19:29 Constitutional: This is a well developed, well nourished patient who is awake, alert, jmm and in no acute distress. Head/Face: atraumatic. Eyes: EOMI, no conjunctival erythema appreciated ENT: Moist Mucus Membranes Neck: Trachea midline, Supple Chest/axilla: Normal chest wall appearance and motion. Cardiovascular: Regular rate and rhythm. No edema appreciated Respiratory: Normal respirations, no respiratory distress appreciated Abdomen/GI: Non distended, soft Back: Normal ROM Skin: General appearance color normal MS/ Extremity: Moves all extremities, no obvious deformities appreciated, no edema noted to the lower extremities Neuro: Awake and alert, normal gait Psych: Behavior is normal, Mood is normal, Patient is cooperative and pleasant Vital Signs: 17:19 BP 136 / 98; Pulse 81; Resp 16 S; Temp 98.4(O); Pulse Ox 98% on R/A; Weight 115.67 kg ca1 (R); Height 6 ft. 4 in. (193.04 cm) (R); Pain 7/10; 21:00 BP 128 / 80; Pulse 79; Resp 16; Pulse Ox 98% on R/A; zb 21:28 BP 141 / 58; Pulse 76; Resp 16; Pulse Ox 97% on R/A; zb 17:19 Body Mass Index 31.04 (115.67 kg, 193.04 cm) ca1 MDM: 19:18 Patient medically screened. [facility] 20:51 Data reviewed: vital signs, nurses notes. Counseling: I had a detailed discussion with daina the patient and/or guardian regarding: the historical points, exam findings, and any diagnostic results supporting the discharge/admit diagnosis, lab results, radiology results, the need for outpatient follow up, to return to the emergency department if symptoms worsen or persist or if there are any questions or concerns that arise at home. ED course: Headache partially relieved in the ED. Patient is non toxic in appearance, afebrile, neck is supple. I do not suspect meningitis. CT is negative but I recommended a CTA for further evaluation. Patient refused but stated he has a f[facility]u appt at [facility]. Patient is otherwise given strict return precautions. Patient understood and agrees with the plan of care. . 05/05 19:29 Order name: Basic Metabolic Panel; Complete Time: 20:45 [facility] 05/05 19:29 Order name: CBC with Diff [facility] 05/05 19:29 Order name: LFT's; Complete Time: 20:45 [facility] 05/05 19:29 Order name: Magnesium; Complete Time: 20:45 [facility] 05/05 19:29 Order name: NT PRO-BNP; Complete Time: 20:45 [facility] 05/05 19:29 Order name: PT-INR; Complete Time: 20:34 [facility] 05/05 19:29 Order name: Troponin (emerg Dept Use Only); Complete Time: 20:45 [facility] 05/05 19:29 Order name: EKG; Complete Time: 19:29 [facility] 05/05 19:29 Order name: CT Head Brain wo Cont; Complete Time: 19:55 [facility] 05/05 20:30 Order name: CBC Smear Scan [facility] 05/05 19:29 Order name: Cardiac monitoring; Complete Time: 20:02 [facility] 05/05 19:29 Order name: EKG - Nurse/Tech; Complete Time: 20:12 [facility] 05/05 19:29 Order name: IV Saline Lock; Complete Time: 20:02 [facility] 05/05 19:29 Order name: Labs collected and sent; Complete Time: 20:02 [facility] 05/05 19:29 Order name: O2 Per Protocol; Complete Time: 20:02 [facility] 05/05 19:29 Order name: O2 Sat Monitoring; Complete Time: 20:02 [facility] Administered Medications: 20:11 Drug: Reglan 10 mg Route: IVP; Site: right antecubital; zb 21:26 Follow up: Response: No adverse reaction; Pain is decreased zb 20:11 Drug: diphenhydrAMINE 12.5 mg Route: IVP; Site: right antecubital; zb 21:26 Follow up: Response: No adverse reaction zb 20:12 Drug: NS 0.9% 250 ml Route: IV; Rate: calculated rate; Site: right antecubital; zb 21:26 Follow up: Response: No adverse reaction; IV Status: Completed infusion; IV Intake: zb 250ml Disposition: 05/06 05:50 Co-signature as Attending Physician, Tony Steven MD I agree with the assessment and kdr plan of care. Disposition: 05/05/20 20:55 Discharged to Home. Impression: Headache, Elevated Blood Pressure. - Condition is Stable. - Discharge Instructions: General Headache Without Cause. - Medication Reconciliation Form, Thank You Letter, Antibiotic Education, Prescription Opioid Use form. - Follow up: Private Physician; When: Tomorrow; Reason: Recheck today's complaints, Continuance of care, Re-evaluation by your physician. Signatures: Dispatcher [employer] [facility] Tony Steven MD MD kdr Mickail, Joel, PA PA jmm Acob, Cheryl RN Luiza Lopez RN RN denis Corrections: (The following items were deleted from the chart) 05/05 20:30 20:29 Manual Differential ordered. [facility] 21:42 20:55 05/05/2020 20:55 Discharged to Home. Impression: Headache; Elevated Blood zb Pressure. Condition is Stable. Forms are Medication Reconciliation Form, Thank You Letter, Antibiotic Education, Prescription Opioid Use. Follow up: Private Physician; When: Tomorrow; Reason: Recheck today's complaints, Continuance of care, Re-evaluation by your physician. [facility]
[2020-05-05 21:02] LABS: Blood Morphology Comment NOT SEEN (NOT SEEN); Platelet Estimate INCR; Platelets, Giant SEEN; White Blood Cell Scan OK (OK)
[2020-05-05 21:46] VITALS: TEMP 98.4
[2020-05-05 21:48] VITALS: BP 141/58; O2SAT 97
--- NOTE | 2020-05-06 06:18 | EKG ---
Test Date: 2020-05-05 Test Time: 20:12:12 Director Of Photography: SIMON MEASUREMENT RESULTS: Intervals: Rate: 75 ND: 172 QRSD: 102 QT: 402 QTc: 448 [place]: P: 66 ND: 172 QRS: -21 T: 37 INTERPRETIVE STATEMENTS: Sinus rhythm with premature atrial complexes Otherwise normal ECG Compared to ECG 10/21/2004 14:28:00 Atrial premature complex(es) now present Electronically Signed On 05-06-20 06:17:56 [employer] by Jim Nguyen
== END 2020-05-05 21:42 | disposition home or self-care (01) ==
LOC: ER 16:45
DX: I10 Essential (primary) hypertension (principal); E11.9 Type 2 diabetes mellitus without complications; E78.5 Hyperlipidemia, unspecified; Z87.820 Personal history of traumatic brain injury
CPT/HCPCS: 96365; 93005; 85025; 80048; 36415; 83735; 85610; 80076; 84484; 83880; 70450; 96375; 99284; J2765; J1200; J7050